=== PATIENT | female | born 1965 | race Caucasian/White ===

== ENCOUNTER 2020-04-30 11:20 | Emergency (ER) | payer BC, OTHER ==
[~2020-04-30 11:20] MED LIST: PROTONIX40 MG PO; REGLAN10 MG PO
[2020-04-30] MEDS ORDERED: OMNICEF 300 MG300 MG PO (13:21)
[2020-04-30] MEDS ORDERED: ZITHROMAX250 MG PO (13:21)
== END 2020-04-30 13:37 | disposition home or self-care (01) ==
LOC: ER1 11:20
DX: J18.9 Pneumonia, unspecified organism (principal); J45.909 Unspecified asthma, uncomplicated; F17.290 Nicotine dependence, other tobacco product, uncomplicated; Z88.5 Allergy status to narcotic agent; Z88.8 Allergy status to other drugs, medicaments and biological substances; Z20.822 Contact with and (suspected) exposure to COVID-19
CPT/HCPCS: 71045; 99284; U0002

== ENCOUNTER 2020-10-13 17:43 | Emergency (ER) | payer OTHER ==
[~2020-10-13 17:43] MED LIST changes: +OMNICEF 300 MG300 MG PO; +ZITHROMAX250 MG PO
== END 2020-10-13 19:40 | disposition home or self-care (01) ==
LOC: ER1 17:43
DX: S61.411A Laceration without foreign body of right hand, initial encounter (principal); W26.8XXA Contact with other sharp object(s), not elsewhere classified, initial encounter; Y92.69 Other specified industrial and construction area as the place of occurrence of the external cause; Y99.0 Civilian activity done for income or pay
CPT/HCPCS: 12001; 99282

== ENCOUNTER 2021-03-03 11:15 | Emergency (ER) | payer BC, OTHER ==
[2021-03-03 12:12] LABS: BORDETELLA PARAPERTUSSIS Not Detected (Not Detectd); BORDETELLA PERTUSSIS Not Detected (Not Detectd); CHLAMYDIA PNEUMONIAE Not Detected (Not Detectd); CORONAVIRUS HKU1 Not Detected (Not Detectd); CORONAVIRUS NL63 Not Detected (Not Detectd); CORONAVIRUS OC43 Not Detected (Not Detectd); CORONOAVIRUS 229E Not Detected (Not Detectd); HUMAN METAPNEUMOVIRUS Not Detected (Not Detectd); HUMAN RHINOVIRUS/ENTEROVIRUS Not Detected (Not Detectd); INFLUENZA A Not Detected (Not Detectd); INFLUENZA B Not Detected (Not Detectd); MYCOPLASMA PNEUMONIAE Not Detected (Not Detectd); PARAINFLUENZA VIRUS 1 Not Detected (Not Detectd); PARAINFLUENZA VIRUS 2 Not Detected (Not Detectd); PARAINFLUENZA VIRUS 3 Not Detected (Not Detectd); PARAINFLUENZA VIRUS 4 Not Detected (Not Detectd); RESPIRATORY SYNCYTIAL VIRUS Not Detected (Not Detectd)
[2021-03-03 12:59] LABS: BUN/CREATININE RATIO 17 (0-10)
[2021-03-03 13:10] LABS: HEMOGLOBIN 15.2 gm/dl (12.3-15.3); RED BLOOD COUNT 5.15 M/UL (4.00-5.10); WHITE BLOOD COUNT 19.9 K/UL (4.5-11.0)
[2021-03-03 13:48] LABS: SARS-CoV-2 NOT DETECTED (Not Detectd)
== END 2021-03-03 16:58 | disposition home or self-care (01) ==
LOC: ER1 11:15
PROVIDERS: Emergency Medicine
DX: J02.9 Acute pharyngitis, unspecified (principal); J06.9 Acute upper respiratory infection, unspecified; R10.9 Unspecified abdominal pain; Z90.710 Acquired absence of both cervix and uterus; F17.290 Nicotine dependence, other tobacco product, uncomplicated; D72.829 Elevated white blood cell count, unspecified; Z20.822 Contact with and (suspected) exposure to COVID-19
CPT/HCPCS: 71045; 80053; 81001; 82550; 82553; 83690; 83874; 84484; 85025; 86403; 87040; 87081; 87633; 87880; 99284; Q9967

== ENCOUNTER 2021-03-04 13:22 | Emergency (ER) | payer BC, OTHER ==
[2021-03-04 14:10] LABS: HEMOGLOBIN 15.1 gm/dl (12.3-15.3); RED BLOOD COUNT 5.04 M/UL (4.00-5.10); WHITE BLOOD COUNT 24.3 K/UL (4.5-11.0)
[2021-03-04 14:17] LABS: BORDETELLA PARAPERTUSSIS Not Detected (Not Detectd); BORDETELLA PERTUSSIS Not Detected (Not Detectd); CHLAMYDIA PNEUMONIAE Not Detected (Not Detectd); CORONAVIRUS HKU1 Not Detected (Not Detectd); CORONAVIRUS NL63 Not Detected (Not Detectd); CORONAVIRUS OC43 Not Detected (Not Detectd); CORONOAVIRUS 229E Not Detected (Not Detectd); HUMAN METAPNEUMOVIRUS Not Detected (Not Detectd); HUMAN RHINOVIRUS/ENTEROVIRUS Not Detected (Not Detectd); INFLUENZA A Not Detected (Not Detectd); INFLUENZA B Not Detected (Not Detectd); MYCOPLASMA PNEUMONIAE Not Detected (Not Detectd); PARAINFLUENZA VIRUS 1 Not Detected (Not Detectd); PARAINFLUENZA VIRUS 2 Not Detected (Not Detectd); PARAINFLUENZA VIRUS 3 Not Detected (Not Detectd); PARAINFLUENZA VIRUS 4 Not Detected (Not Detectd); RESPIRATORY SYNCYTIAL VIRUS Not Detected (Not Detectd)
[2021-03-04 14:43] LABS: BUN/CREATININE RATIO 16 (0-10)
[2021-03-04 15:19] LABS: SARS-CoV-2 NOT DETECTED (Not Detectd)
== END 2021-03-04 16:18 | disposition home or self-care (01) ==
LOC: ER1 13:22
PROVIDERS: Preventive Medicine Occupational Medicine
DX: D72.829 Elevated white blood cell count, unspecified (principal); Z20.822 Contact with and (suspected) exposure to COVID-19; J45.909 Unspecified asthma, uncomplicated
CPT/HCPCS: 36600; 71046; 80053; 80307; 81001; 82140; 82550; 82553; 82803; 83605; 83690; 83874; 83880; 84484; 85025; 85652; 86140; 87040; 87086; 87633; 96374; 96375; 99284; J0696; J2405

== ENCOUNTER → 2021-08-07 | Outpatient (CLI) | payer BC, OTHER | LOC: KOH-I 10:11 | DX: D44.0 Neoplasm of uncertain behavior of thyroid gland (principal); E04.2 Nontoxic multinodular goiter | CPT/HCPCS: 76536 ==

== ENCOUNTER → 2021-08-15 | Outpatient (CLI) | payer BC, OTHER | LOC: KOH-I 13:34 | DX: M50.123 Cervical disc disorder at C6-C7 level with radiculopathy (principal) | CPT/HCPCS: 72141 ==

== ENCOUNTER → 2021-12-11 | Outpatient (CLI) | payer BC, OTHER ==
[~2021-12-11] MED LIST changes: +ADVAIR 250-501 EACH INH; +CETIRIZINE HCL10 MG PO; +FAMOTIDINE20 MG PO; +HYDROXYZINE HCL10 MG PO; +LIPITOR TAB 1010 MG PO; +LISINOPRIL20 MG PO; +MELATONIN10 M2 PO; +MONTELUKAST SOD10 MG PO; +PROAIR HFA8.5 GM INH; +ROPINIROLE HC0.25 MG PO
[2021-12-11 09:37] LABS: HEMOGLOBIN 13.7 gm/dl (12.3-15.3); RED BLOOD COUNT 4.76 M/UL (4.00-5.10)
[2021-12-11 10:55] LABS: BUN/CREATININE RATIO 14 (0-10)
== END ==
LOC: OPSV2 08:00 → EDSTATUS 08:00 → OPSV2 08:18
PROVIDERS: Orthopaedic Surgery
DX: Z01.818 Encounter for other preprocedural examination (principal); M54.12 Radiculopathy, cervical region
CPT/HCPCS: 71046; 80048; 81001; 85027; 85610; 85730; 87081; 87086; 93005

== ENCOUNTER → 2021-12-19 | Outpatient (CLI) | payer BC, OTHER | LOC: KOH-I 09:05 | DX: M50.023 Cervical disc disorder at C6-C7 level with myelopathy (principal); M48.02 Spinal stenosis, cervical region; M25.78 Osteophyte, vertebrae | CPT/HCPCS: 72125 ==

== ENCOUNTER → 2021-12-25 | Outpatient (CLI) | payer BC, OTHER ==
[~2021-12-25] MED LIST changes: +ROXICODONE5 MG PO
[2021-12-25 14:15] LABS: BUN/CREATININE RATIO 13 (0-10)
== END ==
LOC: LAB 12:34
PROVIDERS: Orthopaedic Surgery
DX: Z01.812 Encounter for preprocedural laboratory examination (principal)
CPT/HCPCS: 36415; 80048; 86850; 86900; 86901

== ENCOUNTER 2021-12-26 06:05 | Day surgery (SDC) | payer BC, OTHER ==
[~2021-12-26] VITALS: Ht 170.2 cm; Wt 79.4 kg
[~2021-12-26 06:05] MED LIST changes: -ROXICODONE5 MG PO
[2021-12-26 15:11] LABS: HEMOGLOBIN 12.9 gm/dl (12.3-15.3); RED BLOOD COUNT 4.46 M/UL (4.00-5.10); WHITE BLOOD COUNT 15.1 K/UL (4.5-11.0)
[2021-12-26 15:43] LABS: BUN/CREATININE RATIO 16 (0-10)
--- NOTE | 2021-12-26 18:47 | NUR ---
PT ARRIVED AT 1745 CHARTING TIME IS OFF. PT ASSESSED AT 1745.
[2021-12-27 05:09] LABS: RED BLOOD COUNT 4.67 M/UL (4.00-5.10); WHITE BLOOD COUNT 18.7 K/UL (4.5-11.0)
[2021-12-27 05:29] LABS: BUN/CREATININE RATIO 15 (0-10)
[2021-12-27] MEDS ORDERED: HYDROXYZINE HCL10 MG PO (09:08)
[2021-12-27] MEDS ORDERED: ROXICODONE5 MG PO (10:11)
== END 2021-12-27 12:19 | disposition home or self-care (01) ==
LOC: OR 06:05 → CCU 17:27 → OR 12-27 12:19
PROVIDERS: Orthopaedic Surgery
DX: M54.12 Radiculopathy, cervical region (principal); R06.09 Other forms of dyspnea; G93.40 Encephalopathy, unspecified; I10 Essential (primary) hypertension; J45.909 Unspecified asthma, uncomplicated; E78.5 Hyperlipidemia, unspecified; F41.9 Anxiety disorder, unspecified; Z85.41 Personal history of malignant neoplasm of cervix uteri; Z85.42 Personal history of malignant neoplasm of other parts of uterus; Z88.5 Allergy status to narcotic agent; Z91.040 Latex allergy status
CPT/HCPCS: 36415; 36600; 72040; 72050; 76000; 80048; 82803; 85025; 85027; 94760; 97116; 97162; 97166; C1713; C1762; J0690; J1100; J1170; J2001; J2250; J2310; J2370; J2405; J2704; J3010; J3475; J7040

== ENCOUNTER 2022-01-17 15:58 | Emergency (ER) | payer BC, OTHER ==
[~2022-01-17 15:58] MED LIST changes: +ROXICODONE5 MG PO
[2022-01-17 17:03] LABS: HEMOGLOBIN 13.6 gm/dl (12.3-15.3); RED BLOOD COUNT 4.75 M/UL (4.00-5.10); WHITE BLOOD COUNT 8.7 K/UL (4.5-11.0)
[2022-01-17 17:25] LABS: BUN/CREATININE RATIO 11 (0-10)
== END 2022-01-17 20:19 | disposition left against medical advice (07) ==
LOC: ER1 15:58
PROVIDERS: Emergency Medicine
DX: R06.02 Shortness of breath (principal); R05.9 Cough, unspecified; I10 Essential (primary) hypertension; E11.9 Type 2 diabetes mellitus without complications
CPT/HCPCS: 71045; 80053; 82550; 82553; 84484; 85025; 93005; 99281

== ENCOUNTER → 2022-01-18 | Outpatient (CLI) | payer BC, OTHER | LOC: CT 17:30 | DX: R06.00 Dyspnea, unspecified (principal); R00.0 Tachycardia, unspecified; Z98.890 Other specified postprocedural states | CPT/HCPCS: Q9967 ==